=== PATIENT | female | born 1990 | race African-American/Black ===

== ENCOUNTER → 2024-05-08 | Day surgery (SDC) | payer OTHER | END | disposition home or self-care (01) | LOC: EDSTATUS 13:15 → JRADUS-SUR 13:56 | PROVIDERS: ATTEND Surgery | PROC: 07953ZX Drainage of Right Axillary Lymphatic, Percutaneous Approach, Diagnostic (ICD-10-PCS; principal; 2024-05-08) | DX: R59.0 Localized enlarged lymph nodes (principal); C50.911 Malignant neoplasm of unspecified site of right female breast | CPT/HCPCS: 19083; 76942-TC; 87899; 88305-TC; 88342-TC; A4648 ==